=== PATIENT | male | born 1945 | race Caucasian/White ===

== ENCOUNTER 2018-04-05 08:39 | Inpatient (IN) | payer OTHER, MEDICARE ==
--- NOTE | 2018-04-05 09:58 | EDPHY ---
H & P Stated Complaint: sharp r arm pain this week noted when shoveling and cross country skiing Time Seen by Provider: 04/05/18 09:33 HPI/ROS: CHIEF COMPLAINT: Right arm pain HISTORY OF PRESENT ILLNESS: 73-year-old male with hypertension presents with right arm pain. Onset of intermittent right arm pain 1 week ago. He was cross- country skiing yesterday and developed a severe achiness in his right arm. He continued skiing, stopped using his right pole and let his arm dangle at his side, after which the achiness resolved. He was able to ski normally as long as he did not use his right arm. He had a similar episode while shoveling snow earlier this week. Associated with exertional dyspnea for 6 weeks and occasional nonproductive cough for several months. No prior cardiac history. REVIEW OF SYSTEMS: complete 10 point ROS reviewed and is negative except for the noted elements in the HPI - Personal History Current Tetanus Diphtheria and Acellular Pertussis (TDAP): Yes - Medical/Surgical History Hx Asthma: No Hx Chronic Respiratory Disease: No Hx Diabetes: No Hx Cardiac Disease: No Hx Renal Disease: No Hx Cirrhosis: No Hx Alcoholism: No Hx HIV/AIDS: No Hx Splenectomy or Spleen Trauma: No Other PMH: htn/ ortho inj - Social History Smoking Status: Never smoked Alcohol Use: Sober Drug Use: None Additional Social History: - Physical Exam Exam: General Appearance: Alert, pleasant Eyes: Pupils equal and round, no conjunctival pallor or injection ENT, Mouth: Mucous membranes moist Neck: Normal inspection Respiratory: Lungs are clear to auscultation Cardiovascular: Regular rate and rhythm Gastrointestinal: Abdomen is soft and nontender Neurological: A&O, nonfocal, normal gait Skin: Warm and dry, no rash Extremities: Nontender, no pedal edema, negative Homans sign; right upper extremity normal inspection, no swelling or tenderness Vascular: 1+ radial pulse on the right; 2+ radial pulse on the left, normal capillary refill Psychiatric: Mood and affect normal Constitutional: Initial Vital Signs Temperature (C) 36.3 C 04/05/18 08:45 Heart Rate 98 04/05/18 08:45 Respiratory Rate 18 04/05/18 08:45 Blood Pressure 132/87 H 04/05/18 08:45 O2 Sat (%) 98 04/05/18 08:45 O2 Delivery Mode Room Air Allergies/Adverse Reactions: Penicillins Allergy (Verified 04/05/18 11:48) does not remember, possible dizziness Home Medications: Medication Instructions Recorded Calcium Carbonate [Oyster Shell 500 mg PO DAILY 04/05/18 Calcium 500 mg (*)] Fluticasone Nasal [Flonase Nasal 1 sprays NASAL BID 04/05/18 [place] (RX)] Glucosamine Sulfate [Glucosamine 500 mg PO DAILY 04/05/18 Sulfate 500 MG (*)] Losartan Potassium [Cozaar 50 mg 50 mg PO DAILY 04/05/18 (*)] Omeprazole 20 mg PO Q2D 04/05/18 Medical Decision Making - Diagnostics EKG Interpretation: EKG interpreted by me reveals normal sinus rhythm, rate 80, PAC, no ST or T segment changes. Interpretation: Otherwise normal EKG. Imaging Results: Imaging Impressions Chest X-Ray 04/05/18 09:52 Impression: Chronic COPD/emphysema. Nothing acute identified. Chest/Thorax CTA 04/05/18 11:32 Impression: 1. Peripherally located thrombus within a segmental branch of the right lower lobe, favored to represent a chronic pulmonary embolus. 2. 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 There is near complete occlusion of the right axillary artery to the level of the brachial artery due to inflammation. Other affected vessels include the proximal right vertebral artery, bilateral subclavian arteries, left axillary artery, proximal celiac and left renal arteries, and abdominal aorta. No aneurysm. 3. Groundglass nodules in the bilateral upper lobes, measuring up to 4.8 mm. These may be infectious. Would consider 12 month follow-up CT. 4. Large hiatal hernia. 5. Encapsulated fluid collection adjacent to the right hip prosthesis, possibly representing a seroma or bursitis. No imaging evidence of an abscess but would exclude clinically. 6. Compression fracture of L3 of unknown chronicity with retrolisthesis of L3 on L4 causing impingement of the spinal canal. Findings and recommendations discussed with RAUL PULIDO at 1328 hour, 2018. Upper Extremity CT 04/05/18 11:33 Impression: 1. Peripherally located thrombus within a segmental branch of the right lower lobe, favored to represent a chronic pulmonary embolus. 2. 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 There is near complete occlusion of the right axillary artery to the level of the brachial artery due to inflammation. Other affected vessels include the proximal right vertebral artery, bilateral subclavian arteries, left axillary artery, proximal celiac and left renal arteries, and abdominal aorta. No aneurysm. 3. Groundglass nodules in the bilateral upper lobes, measuring up to 4.8 mm. These may be infectious. Would consider 12 month follow-up CT. 4. Large hiatal hernia. 5. Encapsulated fluid collection adjacent to the right hip prosthesis, possibly representing a seroma or bursitis. No imaging evidence of an abscess but would exclude clinically. 6. Compression fracture of L3 of unknown chronicity with retrolisthesis of L3 on L4 causing impingement of the spinal canal. Findings and recommendations discussed with RAUL PULIDO at 1328 hour, 2018. Imaging: Discussed imaging studies w/ call center trainer Radiologist ED Course/Re-evaluation: This patient presents with right arm pain. He has a decreased pulse in the right radial artery, with good capillary refill. Concerning for arterial compromise. I initially ordered an arterial ultrasound, but was unable to obtain this test. For this reason, I ordered a CT angiogram of the chest and the right upper extremity. This reveals diffuse arteritis, which is certainly the reason for the patient's symptoms. The hospitalist service was consulted and will pursue further evaluation of the arteritis and likely steroid treatment. Results discussed with the patient. He was asymptomatic throughout his emergency department stay. Differential Diagnosis: Includes does not limited to acute arterial compromise, acute coronary syndrome , pulmonary embolism, DVT - Data Points Laboratory Results: Laboratory Results 04/05/18 10:00 04/05/18 10:00 04/05/18 04/05/18 04/05/18 10:03 10:00 10:00 WBC RBC Hgb Hct 43.1 % % (40.0-51.0) MCV MCH MCHC RDW Plt Count MPV Neut % (Auto) Lymph % (Auto) [place] % (Auto) Eos % (Auto) Baso % (Auto) Nucleat RBC Rel Count Absolute Neuts (auto) Absolute Lymphs (auto) Absolute Monos (auto) Absolute Eos (auto) Absolute Basos (auto) Absolute Nucleated RBC Immature Gran % Immature Gran # ESR 19 MM/HR MM/HR (0-20) D-Dimer 0.56 ug/mLFEU H ug/mLFEU (0.00-0.50) Sodium Potassium Chloride Carbon Dioxide Anion Gap BUN Creatinine Estimated GFR Glucose Calcium POC Troponin I 0.01 ng/mL ng/mL (0.00-0.08) NT-Pro-B Natriuret Pep 04/05/18 04/05/18 10:00 10:00 WBC 7.70 10^3/uL 10^3/uL (3.80-9.50) RBC 5.44 10^6/uL 10^6/uL (4.40-6.38) Hgb 13.5 g/dL L g/dL (13.7-17.5) Hct 43.1 % % (40.0-51.0) MCV 79.2 fL L fL (81.5-99.8) MCH 24.8 pg L pg (27.9-34.1) MCHC 31.3 g/dL L g/dL (32.4-36.7) RDW 14.9 % % (11.5-15.2) Plt Count 360 10^3/uL 10^3/uL (150-400) MPV 9.0 fL fL (8.7-11.7) Neut % (Auto) 65.3 % % (39.3-74.2) Lymph % (Auto) 21.2 % % (15.0-45.0) [place] % (Auto) 9.7 % % (4.5-13.0) Eos % (Auto) 2.9 % % (0.6-7.6) Baso % (Auto) 0.5 % % (0.3-1.7) Nucleat RBC Rel Count 0.0 % % (0.0-0.2) Absolute Neuts (auto) 5.03 10^3/uL 10^3/uL (1.70-6.50) Absolute Lymphs (auto) 1.63 10^3/uL 10^3/uL (1.00-3.00) Absolute Monos (auto) 0.75 10^3/uL 10^3/uL (0.30-0.80) Absolute Eos (auto) 0.22 10^3/uL 10^3/uL (0.03-0.40) Absolute Basos (auto) 0.04 10^3/uL 10^3/uL (0.02-0.10) Absolute Nucleated RBC 0.00 10^3/uL 10^3/uL (0-0.01) Immature Gran % 0.4 % % (0.0-1.1) Immature Gran # 0.03 10^3/uL 10^3/uL (0.00-0.10) ESR D-Dimer Sodium 140 mEq/L mEq/L (135-145) Potassium 3.9 mEq/L mEq/L (3.5-5.2) Chloride 108 mEq/L mEq/L (97-110) Carbon Dioxide 24 mEq/l mEq/l (22-31) Anion Gap 8 mEq/L mEq/L (6-14) BUN 14 mg/dL mg/dL (7-23) Creatinine 0.9 mg/dL mg/dL (0.7-1.3) Estimated GFR > 60 Glucose 105 mg/dL H mg/dL (70-100) Calcium 9.0 mg/dL mg/dL (8.5-10.4) POC Troponin I NT-Pro-B Natriuret Pep 92 pg/mL pg/mL (0-125) Medications Given: Sodium Chloride (Ns) 1,000 mls @ 125 mls/hr IV CONT MARY Stop: 04/05/18 21:29 Last Admin: 04/05/18 14:58 Dose: 1,000 mls Discontinued Medications Aspirin Buffered (Aspirin Ec) 81 mg PO DAILY [facility] Stop: 10/02/18 13:44 Last Admin: 04/05/18 14:31 Dose: Not Given Point of Care Test Results: Chemistry 04/05/18 10:03 POC Troponin I 0.01 ng/mL ng/mL (0.00-0.08) Departure - Departure Disposition: [facility] [place] Inpatient Acute Clinical Impression: Arteritis, unspecified Condition: Fair
[2018-04-05 10:17] LABS: PLATELET COUNT 360 10^3/uL (150-400)
[2018-04-05] MEDS ORDERED: IOPAMIDOL (ISOVUE 370) 100 ML BTL IV ONE (12:03)
[2018-04-05] MEDS ORDERED: ONDANSETRON 4 MG/2 ML VIAL IVP PRN (12:28)
[2018-04-05] MEDS ORDERED: ONDANSETRON DISINTEGRATING 4 MG TAB PO PRN (12:28)
[2018-04-05] MEDS ORDERED: ACETAMINOPHEN 325 MG TAB PO PRN (12:28)
--- NOTE | 2018-04-05 13:11 | PDGENHP ---
History and Physical - Chief Complaint Right arm pain - History of Present Illness 73 y/o male presents with one week worth of intermittent right arm pain. On one occasion, he was shoveling snow and noticed his right arm aching and felt short of breath. On another occasion, he was cross country skiing and attempting to pole up the mountain but his right arm was quite bothersome especially the triceps and forearm. He describes it as sharp and stabbing. He stopped using his arm and the symptoms resolved. Approximately 6 weeks ago, he noticed exertional dyspnea and a non-productive cough. He is a very active gentleman who goes to the gym to rock climb, skiing, etc but he noticed exertional dyspnea after going up one flight of stairs which is unlike him. He also reports 2 months ago while hiking, he noticed what felt like a "mirella horse" to his right calf but it was very bothersome to him. He continue to massage the area and it eventually resolved. Denies chest pains, nausea, vomiting, fevers or chills. Past Medical/Surgical History 1. Hypertension 2. Acid Reflux 3. Right hip replaced (2007) 4. Prostate CA 5. Prostatectomy (2009) Social 1. to , Antonia who was at bedside 2. Denies tobacco or illicit drug use. No alcohol use. History Information - Allergies/Home Medication List Allergies/Adverse Reactions: Penicillins Allergy (Verified 04/05/18 11:48) does not remember, possible dizziness Home Medications: Calcium Carbonate [Oyster Shell Calcium 500 mg (*)] 500 mg PO DAILY 04/05/18 [ Last Taken 04/05/18] Fluticasone Nasal [Flonase Nasal [place] (RX)] 1 sprays NASAL BID 04/05/18 [Last Taken Unknown] Glucosamine Sulfate [Glucosamine Sulfate 500 MG (*)] 500 mg PO DAILY 04/05/18 [ Last Taken 04/05/18] Losartan Potassium [Cozaar 50 mg (*)] 50 mg PO DAILY 04/05/18 [Last Taken ] Omeprazole 20 mg PO Q2D 04/05/18 [Last Taken 04/05/18] I have personally reviewed and updated: family history, medical history, social history, surgical history Past Medical History: See HPI list - Surgical History Additional surgical history: See HPI list - Family History Positive for: myocardial infarction Additional family history: Father at 70 y/o, . - Social History Smoking Status: Never smoked Alcohol Use: None Drug Use: None Review of Systems Review of Systems: ROS: 10pt was reviewed & negative except for what was stated in HPI & below Constitutional: Reports: no symptoms EENMT: Reports: no symptoms Cardiac: Reports: no symptoms Respiratory: Reports: shortness of breath Gastrointestinal: Reports: no symptoms Genitourinary: Reports: no symptoms Muscolosketal: Reports: muscle pain, muscle stiffness (RUE) Skin: Reports: no symptoms Neurological: Reports: no symptoms Hematologic/Lymphatic: Reports: no symptoms Immunologic/Allergy: Reports: other (PCN) Physical Exam Physical Exam: Lab data and imaging reviewed Temp Pulse Resp BP Pulse Ox 36.3 C 80 20 103/84 H 97 04/05/18 08:45 04/05/18 12:00 04/05/18 12:00 04/05/18 12:00 04/05/18 12:00 Constitutional: no apparent distress, appears nourished, not in pain Eyes: PERRL Ears, Nose, Mouth, Throat: moist mucous membranes, hearing normal, ears appear normal, no oral mucosal ulcers Cardiovascular: regular rate and rhythym, no murmur, rub, or gallop, No edema Peripheral Pulses: 1+: dorsalis-pedis (R) (Radial 1+), dorsalis-pedis (L) ( Radial 1+) Respiratory: reduced air movement (Diminished throughout lung roberto) Gastrointestinal: normoactive bowel sounds, soft, non-tender abdomen, no palpable masses Genitourinary: no bladder fullness, no bladder tenderness Skin: warm, normal color, no rashes or abrasions, no fluctuance, no induration, No mottled Musculoskeletal: full muscle strength, no muscle tenderness, normal joint ROM, no joint effusions Neurologic: AAOx3, sensation intact bilaterally, CN II-XII Intact Psychiatric: interacting appropriately, not anxious, not encephalopathic, thought process linear Lymph, Heme, Immunologic: no cervical LAD, no supraclavicular LAD Lab Data & Imaging Review 04/05/18 10:00 04/05/18 10:00 WBC 7.70 10^3/uL (3.80-9.50) 04/05/18 10:00 RBC 5.44 10^6/uL (4.40-6.38) 04/05/18 10:00 Hgb 13.5 g/dL (13.7-17.5) L 04/05/18 10:00 Hct 43.1 % (40.0-51.0) 04/05/18 10:00 MCV 79.2 fL (81.5-99.8) L 04/05/18 10:00 MCH 24.8 pg (27.9-34.1) L 04/05/18 10:00 MCHC 31.3 g/dL (32.4-36.7) L 04/05/18 10:00 RDW 14.9 % (11.5-15.2) 04/05/18 10:00 Plt Count 360 10^3/uL (150-400) 04/05/18 10:00 MPV 9.0 fL (8.7-11.7) 04/05/18 10:00 Neut % (Auto) 65.3 % (39.3-74.2) 04/05/18 10:00 Lymph % (Auto) 21.2 % (15.0-45.0) 04/05/18 10:00 [place] % (Auto) 9.7 % (4.5-13.0) 04/05/18 10:00 Eos % (Auto) 2.9 % (0.6-7.6) 04/05/18 10:00 Baso % (Auto) 0.5 % (0.3-1.7) 04/05/18 10:00 Nucleat RBC Rel Count 0.0 % (0.0-0.2) 04/05/18 10:00 Absolute Neuts (auto) 5.03 10^3/uL (1.70-6.50) 04/05/18 10:00 Absolute Lymphs (auto) 1.63 10^3/uL (1.00-3.00) 04/05/18 10:00 Absolute Monos (auto) 0.75 10^3/uL (0.30-0.80) 04/05/18 10:00 Absolute Eos (auto) 0.22 10^3/uL (0.03-0.40) 04/05/18 10:00 Absolute Basos (auto) 0.04 10^3/uL (0.02-0.10) 04/05/18 10:00 Absolute Nucleated RBC 0.00 10^3/uL (0-0.01) 04/05/18 10:00 Immature Gran % 0.4 % (0.0-1.1) 04/05/18 10:00 Immature Gran # 0.03 10^3/uL (0.00-0.10) 04/05/18 10:00 D-Dimer 0.56 ug/mLFEU (0.00-0.50) H 04/05/18 10:00 Sodium 140 mEq/L (135-145) 04/05/18 10:00 Potassium 3.9 mEq/L (3.5-5.2) 04/05/18 10:00 Chloride 108 mEq/L (97-110) 04/05/18 10:00 Carbon Dioxide 24 mEq/l (22-31) 04/05/18 10:00 Anion Gap 8 mEq/L (6-14) 04/05/18 10:00 BUN 14 mg/dL (7-23) 04/05/18 10:00 Creatinine 0.9 mg/dL (0.7-1.3) 04/05/18 10:00 Estimated GFR > 60 04/05/18 10:00 Glucose 105 mg/dL (70-100) H 04/05/18 10:00 Calcium 9.0 mg/dL (8.5-10.4) 04/05/18 10:00 POC Troponin I 0.01 ng/mL (0.00-0.08) 04/05/18 10:03 NT-Pro-B Natriuret Pep 92 pg/mL (0-125) 04/05/18 10:00 Assessment & Plan Plan: 73 y/o male presenting with exertional dyspnea and occasional RUE pain and discomfort with exertional use. Dominant hand is right hand. Performing ADLs does not activate the pain to his arm. He has noticed it only with doing something exertional that requires use of his arm. After returning from a 3 week cruise vacation from [place] to [place], he was evaluated by Dr. Van for chronic fatigue and his exertional dyspnea. He is scheduled for an upcoming stress test this Sunday. At the time of the visit, he was mildly anemic and started on once a day ferrous sulfate Differential diagnoses are pulmonary embolism, acute coronary syndrome, angina. 1. Exertional dyspnea: symptomatic associated with RUE pain -CXR reveals chronic COPD/emphysema, EKG SR with PAC, no ST depression or elevation -D-Dimer elevated 0.56 -BNP: 92 -First troponin negative, will cycle trops -Cont tele/pulse ox monitoring -CTA of chest and RUE pending; will supply IVF to assist with IV contrast excretion -Started on ASA 81 mg -Lipid panel tomorrow; depending on results, would consider initiating statin -Echo complete pending -Possible stress test tomorrow 2. Hypertension -Stable, may continue losartan 3. Anemia -Started utilizing ferrous sulfate on 03/18/18. Continue to monitor. 4. Acid reflux: he reports reflux is from heavy eating of spicy foods -May continue to take omeprazole every other day per pt. Diet: Regular VTE ppx: SCDs Code: Full Dispo: Admit to obs
[2018-04-05] MEDS ORDERED: NS 1,000 ML IV SCH (13:30)
[2018-04-05] MEDS ORDERED: ASPIRIN EC 81 MG TAB PO SCH (13:45)
--- NOTE | 2018-04-05 14:46 | CPEKG ---
Test Reason : OPEN Blood Pressure : / mmHG Vent. Rate : 080 BPM Atrial Rate : 082 BPM P-R Int : 147 ms QRS Dur : 075 ms QT Int : 390 ms P-R-T Axes : 073 067 065 degrees QTc Int : 450 ms Sinus rhythm Atrial premature complex Confirmed by Suzanne Boo ([id number]) on 04/05/2018 2:45:50 PM Referred By: Confirmed By:Suzanne Boo
--- NOTE | 2018-04-05 14:51 | ECHO ---
[email or web address] [address] [address] Main: [phone] Fax: Transthoracic Echocardiogram Name: MARÍA ELENA PAZ MR#: [id number] Study Date: 04/05/2018 Study Time: 02:09 PM Date of : 1945 Age: 73 year(s) Height: 170.2 cm (67 in.) Weight: 65.77 kg (145 lb.) BSA: 1.76 m2 Gender: Male Examination: Echo Indication: exertional dyspnea Image Quality: Adequate Contrast: Requested by: Mabel Lang BP: 127 mmHg/78 mmHg Heart Rate: Rhythm: Indication: exertional dyspnea Procedure Staff Major General: Marifer Oh RDCS Reading Physician: Kaleb Yepez MD Requesting Provider: Conclusions: Normal global systolic LV function. EF is 61 %. Mild mitral valve regurgitation is present. Trivial aortic valve regurgitation. Mild tricuspid regurgitation is present. Right ventricular systolic pressure measures 49mmHg. Measurements: Chambers Valvular Assessment AV/MV Valvular Assessment TV/PV Normal Normal Normal Name Value Range Name Value Range Name Value Range Ao Jaclyn (2D): 3.0 cm (1.4 cm-2.6 AV Vmax: 1.62 m/s (1 m/s-1.7 TR Vmax: 3.31 mm/s ( - ) cm) m/s) TR PGmax: 44 mmHg ( - ) IVSd (2D): 1.0 cm (0.6 cm-1.1 AV maxP mmHg ( - ) syst. PAP: 49 mmHg ( - ) cm) AV meanP mmHg ( - ) PV Vmax: 0.98 m/s (0.6 m/s-0.9 LVDd (2D): 4.0 cm (4.2 cm-5.9 BELLE (VTI): 2.0 cm ( - ) m/s) cm) MV E Vmax: 0.72 m/s ( - ) PV PGmax: 4 mmHg ( - ) LVDs (2D): 2.8 cm (2.1 cm-4 MV A Vmax: 0.76 m/s ( - ) cm) MV E/A: 0.95 ( - ) LVPWd (2D): 1.0 cm (0.6 cm-1 cm) MV PHT: 0.074 s ( - ) LVOTd 2.0 cm 2.0 cm mm MVA (PHT): 3.0 s ( - ) LVEF (BP): 61 % (>=55 %) RVDd(2D): 3.0 cm (1.9 cm-3.8 cmmm) Continued Measurements: Chambers Valvular Assessment AV/MV Valvular Assessment TV/PV Name Value Name Value Name Value Patient: MARÍA ELENA PAZ Study Date: 04/05/2018 Page 1 of 2 02:09 PM LADs: 2.8 cm MV DecTime: 236 m/s CVP (est.): 5 mmHg LADs Lon.1 cm MV E' Septal: 0.07 m/s LA Area: 16.1 cm2 MV E/E' Septal: 9.80 LA Volume: 43 ml MV E/E' Lateral: 6.50 LA Volume Index: 24.4 ml/m2 RA Area: 15.1 cm2 Additional Vessels Name Value Ao Ascendin.0 cm Inferior Vena Cava: 1.5 cm Findings: Left Ventricle: Normal size left ventricle. No LV hypertrophy. Normal global systolic LV function. EF is 61 %. No regional wall motion abnormality. Normal diastolic LV function. Right Ventricle: Normal size right ventricle. Normal RV function. Left Atrium: The left atrium is normal in size. Right Atrium: The right atrium is normal in size. Mitral Valve: The mitral valve is normal in appearance and function. Mild mitral valve regurgitation is present. No mitral stenosis is present. Aortic Valve: The aortic valve is tri-leaflet. Trivial aortic valve regurgitation. No aortic valve stenosis is present. Tricuspid Valve: The tricuspid valve is normal in appearance and function. Mild tricuspid regurgitation is present. The pulmonary artery pressure is moderately increased. Right ventricular systolic pressure measures 49mmHg. Pulmonic Valve: The pulmonic valve is normal in appearance and function. There is no pulmonic regurgitation seen. Aorta: The aorta is normal. Normal size aortic root measuring 3.0 cm. Normal size ascending aorta measuring 3.0 cm. IVC: The IVC is normal sized. Pericardium: No pericardial effusion. No pleural effusion. (No Signature Object) Patient: MARÍA ELENA PAZ Study Date: 04/05/2018 Page 2 of 2 02:09 PM [id number]
[2018-04-05] MEDS ORDERED: HEPARIN 10,000 UNIT/10 ML MDV (1,000 UNIT/ML) IVP ONE (15:47)
[2018-04-05] MEDS ORDERED: HEPARIN 10,000 UNIT/10 ML MDV (1,000 UNIT/ML) IVP PRN (15:47)
[2018-04-05 16:21] LABS: PLATELET COUNT 365 10^3/uL (150-400)
[2018-04-05 16:30] LABS: INR 1.06 (0.83-1.16)
[2018-04-05] MEDS: predniSONE 20 MG TAB PO SCH (16:47)
[2018-04-05] MEDS: HEPARIN/DEXTROSE 500 ML IV SCH (16:47)
--- NOTE | 2018-04-05 17:27 | HOSPPROG ---
Hospitalist Progress Note Assessment/Plan: Pt seen in conjunction with our SORT OPERATIONS SUPERVISOR. 73 y/o male presenting with exertional dyspnea since early March as well as Right arm pain and right calf pain with exertion only. Symptoms go away with rest. Had viral symptoms (rhinorrhea, cough, cold sx's on Mar 02). no hx of asthma or bronchitis. Non smoker. No hx of HLD Studies: EKG: SR, no ischemic changes CTA Chest/right Arm: -Peripheral located RLL Thrombus, possibly chronic, no e/o of right heart strain -Large vessel vasculitis (Giant Cell Arteritis). Involves multiple vessels: 1 )75 % occlusion of Right axillary artery 2) Bilateral Subclavian 3)Left Axillary artery 4)Left renal 5)Abdominal Aorta. 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 Will start Prednisone 60mg daily and obtain Rheum consult. ESR/CRP will be obtained Start bronchodilator. Steroids should also help with the RAD check Trop, cycle Trops. For now, Given the inflammatory state/vasculitis with occlusion, I will hold off on stress testing until d/w consultants will consider cards and pulm consult start Heparin for VTE treatment pending w/u. Obtain LE US to r/o DVT's total critical care time in this patient with significant vasculitis with claudication and with advance occlusion is 75 mins, this is independent of time spent with SORT OPERATIONS SUPERVISOR. Will d/w consultants. Subjective: no active cp. some cough. no sob. Objective: Vital Signs Temp Pulse Resp BP Pulse Ox 36.6 C 83 16 132/91 H 99 04/05/18 15:56 04/05/18 15:56 04/05/18 15:56 04/05/18 15:56 04/05/18 15:56 Laboratory Results 04/05/18 16:05 PT 14.0 SEC (12.0-15.0) 04/05/18 16:05 INR 1.06 (0.83-1.16) 04/05/18 16:05 - Physical Exam Constitutional: no apparent distress Eyes: PERRL Ears, Nose, Mouth, Throat: moist mucous membranes Cardiovascular: No edema Respiratory: no respiratory distress, expiratory wheeze Gastrointestinal: normoactive bowel sounds, soft, non-tender abdomen Skin: warm Neurologic: AAOx3 Psychiatric: interacting appropriately, not anxious, not encephalopathic Lymph, Heme, Immunologic: petechiae ICD10 Worksheet Patient Problems: Problems Problem Status Onset Arteritis, unspecified Acute
[2018-04-05] MEDS: ALBUTEROL 3 ML DEYVIAL IH SCH ×3 (17:40→23:19)
[2018-04-05] MEDS: FLUTICASONE NASAL 120 SPRAYS/16 GM MDI EACHNARE SCH (21:34)
--- NOTE | 2018-04-05 21:39 | PDGENHP ---
History and Physical - Chief Complaint R arm pain - History of Present Illness Mr Garcia is a 73 year old White male who presents to [facility] with R arm pain. He reports that he is very healthy and active up until a few weeks ago. He reports that in January 2018 after hiking with his , he had R leg/calf cramping which felt like a "mirella horse". He reports that this is unusual for him but it went away after awhile. Last week, he was shoveling snow and noted "achiness " in his R arm. This was around the triceps and brachioradialis muscles. The achiness worsened with continued shoveling and seemed to improve with rest. He went to urgent care and then [facility]. He does reports the last 6 months being more short of breath than usual but denies any cough or hemoptysis (he did have an ACEI cough which got better on change to an ARB). He is incredibly active and hikes, and skis with his , Antonia. He also climbs mountains. He has also had multiple international travels this year. He at any time, loss of function of the R arm or R leg (no wrist drop,foot drop, etc). Also denies fatigue, weight loss or fevers. No rashes or photosensitivity, sicca symptoms or oral/nasal ulcers. He denies any joint or muscle pain, or swelling - this includes no shoulder or pelvic girdle pain/stiffness. In addition, he denies headaches, scalp tenderness or jaw claudication. He also denies a history of Hepatitis or any testicular pain. He has hypertension and a remote history of prostate cancer s/p prostatectomy. Recent PSA has been 0. He has a history of R hip replacement due to an injury in the 1960s. He believes this is where he had the L3 compression fracture detected on recent imaging. History Information - Allergies/Home Medication List Allergies/Adverse Reactions: Penicillins Allergy (Verified 04/05/18 11:48) does not remember, possible dizziness Home Medications: Calcium Carbonate [Oyster Shell Calcium 500 mg (*)] 500 mg PO DAILY 04/05/18 [ Last Taken 04/05/18] Fluticasone Nasal [Flonase Nasal Marty (RX)] 1 sprays NASAL BID 04/05/18 [Last Taken Unknown] Glucosamine Sulfate [Glucosamine Sulfate 500 MG (*)] 500 mg PO DAILY 04/05/18 [ Last Taken 04/05/18] Losartan Potassium [Cozaar 50 mg (*)] 50 mg PO DAILY 04/05/18 [Last Taken ] Omeprazole 20 mg PO Q2D 04/05/18 [Last Taken 04/05/18] I have personally reviewed and updated: family history, medical history, social history, surgical history Past Medical History: See HPI list - Past Medical History hypertension Additional medical history: Prostate Cancer s/p prostatectomy - Surgical History Additional surgical history: s/p R hip replacement due to chronic injury - Family History Positive for: myocardial infarction Additional family history: Father at 70 y/o, . 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 [place], [place] Review of Systems Review of Systems: ROS is negative other what is noted below ROS: 10pt was reviewed & negative except for what was stated in HPI & below Constitutional: Reports: no symptoms EENMT: Reports: no symptoms Cardiac: Reports: no symptoms Respiratory: Reports: shortness of breath Gastrointestinal: Reports: no symptoms Genitourinary: Reports: no symptoms Muscolosketal: Reports: no symptoms Skin: Reports: no symptoms Neurological: Reports: no symptoms Hematologic/Lymphatic: Reports: no symptoms Physical Exam Physical Exam: See below Temp Pulse Resp BP Pulse Ox 36.6 C 84 19 99/60 L 94 04/05/18 19:50 04/05/18 19:50 04/05/18 19:50 04/05/18 19:50 04/05/18 19:50 Constitutional: no apparent distress, appears nourished, not in pain Eyes: PERRL Ears, Nose, Mouth, Throat: moist mucous membranes, no oral mucosal ulcers Cardiovascular: regular rate and rhythym, no murmur, rub, or gallop Peripheral Pulses: 2+: carotid (R), carotid (L), femoral (R), femoral (L), dorsalis-pedis (R), dorsalis-pedis (L) Respiratory: no respiratory distress, no rales or rhonchi, clear to auscultation Gastrointestinal: normoactive bowel sounds, soft, non-tender abdomen, no palpable masses Skin: normal color, no rashes or abrasions Musculoskeletal: full muscle strength, no muscle tenderness, normal joint ROM, no joint effusions Neurologic: AAOx3 Psychiatric: interacting appropriately Lymph, Heme, Immunologic: no cervical LAD Lab Data & Imaging Review 04/06/18 03:34 04/06/18 03:34 WBC 7.60 10^3/uL (3.80-9.50) 04/05/18 16:05 RBC 5.17 10^6/uL (4.40-6.38) 04/05/18 16:05 Hgb 13.0 g/dL (13.7-17.5) L 04/05/18 16:05 Hct 42.4 % (40.0-51.0) 04/05/18 16:05 MCV 82.0 fL (81.5-99.8) 04/05/18 16:05 MCH 25.1 pg (27.9-34.1) L 04/05/18 16:05 MCHC 30.7 g/dL (32.4-36.7) L 04/05/18 16:05 RDW 14.7 % (11.5-15.2) 04/05/18 16:05 Plt Count 365 10^3/uL (150-400) 04/05/18 16:05 MPV 9.0 fL (8.7-11.7) 04/05/18 16:05 Neut % (Auto) 62.8 % (39.3-74.2) 04/05/18 16:05 Lymph % (Auto) 27.1 % (15.0-45.0) 04/05/18 16:05 [place] % (Auto) 6.8 % (4.5-13.0) 04/05/18 16:05 Eos % (Auto) 2.5 % (0.6-7.6) 04/05/18 16:05 Baso % (Auto) 0.5 % (0.3-1.7) 04/05/18 16:05 Nucleat RBC Rel Count 0.0 % (0.0-0.2) 04/05/18 16:05 Absolute Neuts (auto) 4.77 10^3/uL (1.70-6.50) 04/05/18 16:05 Absolute Lymphs (auto) 2.06 10^3/uL (1.00-3.00) 04/05/18 16:05 Absolute Monos (auto) 0.52 10^3/uL (0.30-0.80) 04/05/18 16:05 Absolute Eos (auto) 0.19 10^3/uL (0.03-0.40) 04/05/18 16:05 Absolute Basos (auto) 0.04 10^3/uL (0.02-0.10) 04/05/18 16:05 Absolute Nucleated RBC 0.00 10^3/uL (0-0.01) 04/05/18 16:05 Immature Gran % 0.3 % (0.0-1.1) 04/05/18 16:05 Immature Gran # 0.02 10^3/uL (0.00-0.10) 04/05/18 16:05 ESR 19 MM/HR (0-20) 04/05/18 10:00 PT 14.0 SEC (12.0-15.0) 04/05/18 16:05 INR 1.06 (0.83-1.16) 04/05/18 16:05 APTT 27.2 SEC (23.0-38.0) 04/05/18 16:05 D-Dimer 0.56 ug/mLFEU (0.00-0.50) H 04/05/18 10:00 Sodium 140 mEq/L (135-145) 04/05/18 10:00 Potassium 3.9 mEq/L (3.5-5.2) 04/05/18 10:00 Chloride 108 mEq/L (97-110) 04/05/18 10:00 Carbon Dioxide 24 mEq/l (22-31) 04/05/18 10:00 Anion Gap 8 mEq/L (6-14) 04/05/18 10:00 BUN 14 mg/dL (7-23) 04/05/18 10:00 Creatinine 0.9 mg/dL (0.7-1.3) 04/05/18 10:00 Estimated GFR > 60 04/05/18 10:00 Glucose 105 mg/dL (70-100) H 04/05/18 10:00 Calcium 9.0 mg/dL (8.5-10.4) 04/05/18 10:00 POC Troponin I 0.01 ng/mL (0.00-0.08) 04/05/18 10:03 Troponin I < 0.012 ng/mL (0.000-0.034) 04/05/18 15:58 C-Reactive Protein 38.0 mg/L (<10.0) H 04/05/18 15:58 NT-Pro-B Natriuret Pep 92 pg/mL (0-125) 04/05/18 10:00 Imaging Review: I have reviewed the imaging studies done thus far. Most notably, CT Angio of the chest shows almost complete occlusion of the R axillary artery to the level of the brachial artery due to inflammation. Other involved arteries include proximal R vertebral artery, B subclavian arteries, L axillary artery, proximal celiac and renal arteries and abdominal aorta Peripherally located thrombus in the segmental branch of the RLL also noted - likely a chronic PE ECHO - NL EF, trace valve abnormalities LE U/S - No DVT Visualized and Interpreted EKG results: Yes Assessment & Plan Assessment: 1. Arteritis, unspecified (Acute) 2. R arm Claudication 3. Elevated CRP 4. Chronic RLL pulmonary embolus. 5. History of Prostate cancer Mr Garcia is a very pleasant 73 year old male who presents to [facility] with a history of recent R calf and R arm claudication in the setting of an elevated CRP (3.10 mg/dL) and imaging findings suggestive of a vasculitis (multiple areas of occlusion and vessel narrowing - B axillary, R vertebral, B subclavian , proximal celiac, renal and abdominal aortic arteries). The R axillary artery showing near complete occlusion, likely explains his R arm claudication symptoms. He has been started on 60 mg of prednisone. This certainly could be a medium ( MANZANARES) or large vessel (Takayasu's) vasculitis in this setting, but without obtaining tissue diagnosis, it is hard to tell. In addition, Heraclio feels great and with the exception of some mild dyspnea his review of symptoms is largely negative. The differential diagnosis is quite broad here and I do wonder if the R axillary occlusion is actually from thromboembolic disease. After all, a chronic RLL PE was detected. Other possibilities include a cardiac cause such as fibromuscular dysplasia, vasospastic disorders and infection/malignancy. However in terms of the latter, Heraclio's most recent PSA was normal. I do favor the initiation of anticoagulation (Heraclio is on a heparin ggt now) and the continuation of 60 mg of prednisone for now. Pending some addition lab work, I think the decision on whether to pursue tissue diagnosis can be deferred to outpatient management. I would recommend prior to discharge, checking the following labs: KEHINDE IFA, Hepatitis B&C panel, RPR, rheumatoid factor, ANCA, Complements, SPEP, and, IgG4 levels and Antiphospholipid antibodies (B2GP, LA, acL). Also a repeat ESR and CRP prior to discharge would be helpful. I recommend discharge on 60 mg of prednisone along with the following -- omeprazole 20 mg (GI prophylaxis), Bactrim DS MWF (PJP prophylaxis), Alendronate 70 mg once weekly and at least 1200 mg of calcium and 2000 IU of vitamin D (for bone prophylaxis). I have blocked off an appointment slot for Heraclio to follow up with Dr Tarun Castillo, one of my colleagues in our [place], [place] office on , April 11, 2018. I will have my medical receptionist reach out to Heraclio to confirm the appointment on Sunday. Thank you for allowing me to participate in the care of this patient. Wili Boyle DO [facility] Office Number: [phone] Plan: As above - I am okay with discharge with outpatient rheumatology follow up when deemed appropriate by the primary team.
[2018-04-06 04:49] LABS: PLATELET COUNT 345 10^3/uL (150-400)
[2018-04-06] MEDS: ALBUTEROL 3 ML DEYVIAL IH SCH ×4 (05:50→21:00)
[2018-04-06] MEDS: predniSONE 20 MG TAB PO SCH (08:54)
[2018-04-06] MEDS: GLUCOSAMINE SULF 500 MG CAP PO SCH (08:54)
[2018-04-06] MEDS: FLUTICASONE NASAL 120 SPRAYS/16 GM MDI EACHNARE SCH ×2 (08:54→21:41)
[2018-04-06] MEDS ORDERED: LOSARTAN POTASSIUM 50 MG TAB PO SCH (09:00)
[2018-04-06] MEDS ORDERED: CALCIUM CARBONATE 500 MG TAB PO SCH ×2 (09:00→13:44)
--- NOTE | 2018-04-06 11:37 | GHP ---
DATE OF ADMISSION: 04/05/2018 CHIEF COMPLAINT: Patient with exertional shortness of breath and arm pain. This is a 73-year-old male, who presents with a week of intermittent arm pain and some shortness of b reath when snow shoveling and occasionally with skiing. The pain was described as sharp, stabbing. He also had a cough. He came to the emergency room for evaluation. His initial EKG was normal. Sub sequently, 2 cardiac enzymes were normal. His echocardiogram shows normal LV function without signif icant valvular pathology. Subsequently, a CTA had revealed a diagnosis of giant cell arteritis with involvement of the right upper extremity. There is a small pulmonary emboli and some iliac issues as well. He has been seen by Rheumatology and placed on steroid therapy. Prior to his admission, he, apparently, had an outpatient exercise stress test scheduled for next week at the [facility]. I was asked today to evaluate the patient. In speaking to him and his , he is feeling bett er. He has had no known history of coronary artery disease. He has a history of hyperten bharat, medically treated. Once again, he is a very active gentleman, who has had no prior cardiac iss ues. He has never been a smoker, diabetic. OUTPATIENT MEDS: Include losartan. ALLERGIES: He has no known allergies. PAST HISTORY: Hypertension, reflux, and status post prostatectomy for prostate cancer in 2009. LABS: Normal kidney function. BNP of 92. CK-MB is negative x2. Cholesterol is 127 with an LDL of 70. EXAM: VITAL SIGNS: Blood pressure is 104/72, pulse rate of 82. He is afebrile. GENERAL: He is a middle-aged male in no acute distress. HEENT: Mouth: Oropharynx is clear. LUNGS: Clear. CARDIOV ASCULAR: Regular rate and rhythm without murmur, gallops, rubs. ABDOMEN: Soft, nontender. MUSCULO SKELETAL: Showed no cyanosis, clubbing, or edema. Pulses are 2+ and symmetrical. Echocardiogram showed EF of 61%, no regional wall motion abnormality, normal chamber dimensions, no s ignificant valvar heart disease. No aortic root ascending aneurysm noted. ASSESSMENT: Constellation of arm pain, shortness of breath over the last few weeks, most consistent with his diagnosis of giant cell arteritis. The patient was initially thought to have been worked up for cardiac issues for his dyspnea before this diagnosis was made. Since he has been hospitalized, he has had a nonischemic EKG, normal BNP, normal troponins, normal rhythm, and vital signs. He has a history of hypertension as his only risk factor. Prior to his recent events, he was asymptomatic an d doing well. He does have an outpatient exercise stress test planned at the [facility]. At this point, I think he is safe to be discharged without treadmill testing while in the hospitalizati on. This can easily be done at the [facility]. Discussion with he and his about the need for c ontinued followup with peripheral vascular tech and possibly consider surveillance imaging down the line for an y secondary effects from the giant cell arteritis once it has been healed. This will be further disc ussed with his primary care physicians and specialists. Their questions were answered. Case discuss ed with the hospitalist as well. /[id number]/MODL
[2018-04-06] MEDS: HEPARIN/DEXTROSE 500 ML IV SCH (13:39)
--- NOTE | 2018-04-06 13:56 | HOSPPROG ---
Hospitalist Progress Note Assessment/Plan: 73 y/o male presenting with exertional dyspnea since early March as well as Right arm pain and right calf pain with exertion only. Symptoms go away with rest. Had viral symptoms (rhinorrhea, cough, cold sx's on Mar 02). no hx of asthma or bronchitis. Non smoker. No hx of HLD. 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 Involves multiple vessels: 1)75 % occlusion of Right axillary artery 2) Bilateral Subclavian 3)Left Axillary artery 4)Left renal 5)Abdominal Aorta. Per radiology report occlusion is due to inflammation CXR: Hyperinflation TTE: RVSP 49mmHG LE US: no DVT #Large Vessel Vasculitis, possible Giant cell Arteritis vs Polyarteritis Nodosa vs other #Right Arm Claudication, presumably from occlusion from inflammation from vasculitis #Exertional Dyspnea, etiology possibly multifactorial #Reactive Airway disease, unclear if long standing #Small RLL Pulmonary embolus #HTN, chronic #Anemia #Pulm HTN, elevated RVSP, etiology unclear Plan: -Rheum w/u pending. Multiple labs drawn. A biopsy will not be done during this admission but can be considered as op if the diagnosis is still unknown. Cont Prednisone 60mg daily -pulm to see -Cont Heparin. 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 -Card consulted. TTE, EKG, tele, trop no indicative of ACS/CAD. He will have a stress test an an op -D/c today vs tomorrow pending consults and labs/tests ordered Subjective: No cp or sob. no n/v. Objective: Vital Signs Temp Pulse Resp BP Pulse Ox 36.7 C 99 12 104/72 94 04/06/18 07:36 04/06/18 12:00 04/06/18 12:00 04/06/18 07:36 04/06/18 12:00 Laboratory Results 04/06/18 03:34 04/06/18 03:34 04/05/18 04/06/18 04/07/18 05:59 05:59 05:59 Intake Total 1218.2 656 Output Total 1050 300 Balance 168.2 356 PT 14.0 SEC (12.0-15.0) 04/05/18 16:05 INR 1.06 (0.83-1.16) 04/05/18 16:05 - Physical Exam Constitutional: no apparent distress, not in pain Eyes: PERRL, EOMI Ears, Nose, Mouth, Throat: moist mucous membranes, hearing normal Cardiovascular: regular rate and rhythym Respiratory: no respiratory distress, clear to auscultation Gastrointestinal: normoactive bowel sounds, soft, non-tender abdomen Skin: warm Neurologic: AAOx3 Psychiatric: interacting appropriately, not anxious, not encephalopathic Lymph, Heme, Immunologic: No petechiae ICD10 Worksheet Patient Problems: Problems Problem Status Onset Arteritis, unspecified Acute
[2018-04-06] MEDS: CHOLECALCIFEROL VIT D3 2,000 UNITS TAB/CAP PO SCH (14:01)
[2018-04-06] MEDS: RIVAROXABAN 15 MG TAB PO SCH (18:06)
--- NOTE | 2018-04-06 19:14 | ASMTCMCOM ---
CM Note CM Note Notes: Reviewed chart. Pt admitted for cough, exertional shortness of breath/dyspnea, arm pain. History includes HTN, reflux, prostate cancer, s/p prostatectomy. Pt is and lives with his in [place]. Per Dr. Lynn, pt to be started on an anticoagulant either Pradaxa or Xarelto pending insurance coverage. Pt to call insurance company to find out which medication is on their formulary. No PT/OT orders. Anticipate pt will likely discharge home independently with family support when medically stable. CM will continue to follow for any potential needs. Discharge Plan: Likely home independent Date Signed: 04/06/2018 07:12 PM Electronically Signed By:Betty Wall RN
--- NOTE | 2018-04-06 20:26 | PDMN ---
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
[2018-04-07 05:32] LABS: PLATELET COUNT 373 10^3/uL (150-400)
[2018-04-07] MEDS: ALBUTEROL 3 ML DEYVIAL IH SCH ×2 (06:12→11:27)
[2018-04-07 07:43] VITALS: BP 111/68
[2018-04-07] MEDS: GLUCOSAMINE SULF 500 MG CAP PO SCH (08:56)
[2018-04-07] MEDS: RIVAROXABAN 15 MG TAB PO SCH (08:56)
[2018-04-07] MEDS: predniSONE 20 MG TAB PO SCH (08:56)
[2018-04-07] MEDS: CHOLECALCIFEROL VIT D3 2,000 UNITS TAB/CAP PO SCH (08:56)
[2018-04-07] MEDS: FLUTICASONE NASAL 120 SPRAYS/16 GM MDI EACHNARE SCH (08:58)
[2018-04-07] MEDS ORDERED: PANTOPRAZOLE SODIUM 40 MG TAB PO SCH ×2 (09:00)
[2018-04-07] MEDS ORDERED: LOSARTAN POTASSIUM 25 MG TAB PO SCH (09:00)
--- NOTE | 2018-04-07 12:36 | ASDISCHSUM ---
Discharge Information Plan Status:Home with No Needs Medically Cleared to Leave:04/06/2018 Discharge Date:04/07/2018 12:17 PM CM D/C Disposition:Home, Routine, Self-Care ADT D/C Disposition:Home, Routine, Self-Care Projected Discharge Date:04/07/2018 12:17 PM Transportation at D/C: Discharge Delay Reason: Follow-Up Date:04/07/2018 12:17 PM Discharge Slot: Final Diagnosis: Placement Information Patient Contact Information Contact Name:YURIDIA Relationship: Address:[address] City:[place] Alternate Phone: State/Zip Code:[place] [address] Email: Financial Information Financial Class:Medicare Primary Plan Desc:MEDICARE OUTPATIENT Primary Plan Number:[id number] Secondary Plan Desc:AARP/MDR SUPPLEMENT Secondary Plan Number:[id number] Assessment Information [facility] CM Progress Note CM Note CM Note Notes: Reviewed chart. Pt admitted for cough, exertional shortness of breath/dyspnea, arm pain. History includes HTN, reflux, prostate cancer, s/p prostatectomy. Pt is and lives with his in [place]. Per Dr. Lynn, pt to be started on an anticoagulant either Pradaxa or Xarelto pending insurance coverage. Pt to call insurance company to find out which medication is on their formulary. No PT/OT orders. Anticipate pt will likely discharge home independently with family support when medically stable. CM will continue to follow for any potential needs. Discharge Plan: Likely home independent Date Signed: 04/06/2018 07:12 PM Electronically Signed By:Betty Wall RN Intervention Information Intervention Type:*Occurence 73 Date of Service:04/07/2018 12:19 PM Patient Type:Inpatient Staff Member:Erica Bean Hours: Discipline: Severity: Comment:
--- NOTE | 2018-04-07 12:37 | ASMTLACE ---
LACE Length of stay for Answers: Less than 1 day current admission Comorbidities - select Answers: Any tumor (including all that apply lymphoma or leukemia) Other Notes: Reflux, HTN, prostatect gemma # of Emergency department Answers: 1-2 visits in the last 6 months Score: 4 Date Signed: 04/07/2018 12:36 PM Electronically Signed By:Constance Ann RN
--- NOTE | 2018-04-07 13:55 | PDDCSUM ---
Discharge Summary Discharge Summary: 73 y/o male presenting with exertional dyspnea since early March as well as Right arm pain and right calf pain with exertion only. Symptoms go away with rest. Had viral symptoms (rhinorrhea, cough, cold sx's on Mar 02). no hx of asthma or bronchitis. Non smoker. No hx of HLD. Imaging c/w large vessel vasculitis He was started on Prednisone. Rheum consult was obtained. He was continued on Prednisone. He was started on Heparin and then transitioned to Xarelto. He will f/u with Rheumatology this week. Several tests were obtained and are pending. These will be reviewed on f/u. A biopsy was not performed. A cards consult was obtained. He is to have an op stress test. TTE, EKG, tele, trop no indicative of ACS/CAD. TTE showed increased RVSP and he will f/u with Dr. Rick for evaluation as an op. 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 Involves multiple vessels: 1)75 % occlusion of Right axillary artery 2) Bilateral Subclavian 3)Left Axillary artery 4)Left renal 5)Abdominal Aorta. Per radiology report occlusion is due to inflammation CXR: Hyperinflation TTE: RVSP 49mmHG LE US: no DVT DDX: #Large Vessel Vasculitis, possible Giant cell Arteritis vs Polyarteritis Nodosa vs other #Right Arm Claudication, presumably from occlusion from inflammation from vasculitis #Exertional Dyspnea, etiology possibly multifactorial #Query Reactive Airway disease, did not have benefit from bronchodilator #Small RLL Pulmonary embolus #HTN, chronic #Anemia #Pulm HTN, elevated RVSP, etiology unclear Exam: NAD AAOX3 RRR CTA B S/NT/ND MEDS: SEE MED REC F/U: PER ABOVE total time spent on d/c is 40 mins
[2018-04-08 02:24] LABS: HEPATITIS A ANTIBODY IGM (BCH) NEGATIVE (NEGATIVE); HEPATITIS B CORE AB IGM NEGATIVE (NEGATIVE); HEPATITIS B SURFACE ANTIGEN NEGATIVE (NEGATIVE)
[2018-04-08 02:37] LABS: HEPATITIS C ANTIBODY TOTAL NEGATIVE (NEGATIVE); HIV TYPE 1 AND 2 NEGATIVE (NEGATIVE)
[2018-04-08] MEDS ORDERED: SULFAMETHOX/TMP 800/160 MG 1 TAB PO SCH (09:00)
[2018-04-13] MEDS ORDERED: ALENDRONATE SODIUM 70 MG TAB PO SCH (13:50)
== END 2018-04-07 12:17 | disposition home or self-care (01) | DRG 546 ==
LOC: F2W 13:45 → OBSVTOIN 04-06 14:31
PROVIDERS: ADMIT Family Medicine; ATTEND Family Medicine
DX: M31.6 Other giant cell arteritis (principal); M30.0 Polyarteritis nodosa; I77.1 Stricture of artery; I27.82 Chronic pulmonary embolism; I27.29 Other secondary pulmonary hypertension; K44.9 Diaphragmatic hernia without obstruction or gangrene; K21.9 Gastro-esophageal reflux disease without esophagitis; I10 Essential (primary) hypertension; D64.9 Anemia, unspecified; Z85.46 Personal history of malignant neoplasm of prostate; Z96.641 Presence of right artificial hip joint
CPT/HCPCS: 82595-90; 84156-90; 84166-90; 84484-ER; 85520-90; 85635-90; 85670-90; 86147-90; 86334-90; G0378; G0472; J1644; J7512; J7613; Q9967

== ENCOUNTER → 2018-06-04 | Outpatient (CLI) | payer OTHER, MEDICARE | LOC: BMCIMAGING 14:19 | PROVIDERS: ATTEND Internal Medicine | DX: R06.02 Shortness of breath (principal) ==

== ENCOUNTER → 2018-06-22 | Outpatient (CLI) | payer OTHER, MEDICARE ==
[~2018-06-22] MED LIST: IOPAMIDOL (ISOVUE-370) 150 ML BTL IV ONE
== END ==
LOC: FIMAGING 12:56
PROVIDERS: ATTEND Surgery
DX: I77.1 Stricture of artery (principal); M31.6 Other giant cell arteritis; M79.601 Pain in right arm; M54.2 Cervicalgia; M54.6 Pain in thoracic spine; R06.02 Shortness of breath; S32.030A Wedge compression fracture of third lumbar vertebra, initial encounter for closed fracture; M41.86 Other forms of scoliosis, lumbar region
CPT/HCPCS: 71275; 74174; Q9967; 82565-PO

== ENCOUNTER → 2018-06-27 | Outpatient (CLI) | payer OTHER, MEDICARE | LOC: FIMAGING 10:11 | PROVIDERS: ATTEND Internal Medicine Cardiovascular Disease | DX: I70.0 Atherosclerosis of aorta (principal); I77.9 Disorder of arteries and arterioles, unspecified; I74.3 Embolism and thrombosis of arteries of the lower extremities | CPT/HCPCS: 75635; 93306; Q9967 ==

== ENCOUNTER → 2018-07-17 | Day surgery (SDC) | payer OTHER, MEDICARE ==
[~2018-07-17] MED LIST changes: +ASPIRIN EC 325 MG TAB PO ONE; +DIAZEPAM 5 MG TAB PO ONE; +EPOPROSTENOL SODIUM (ARGININE) 300,000 NG in NS 100 ML IV ONE; +FAMOTIDINE 20 MG TAB PO ONE; +LIDOCAINE 1% 300 MG/30 ML SDV ONE; +MIDAZOLAM 2 MG/2 ML VIAL ONE; +NS 1,000 ML IV ONE; +diphenhydrAMINE 25 MG CAP PO ONE; +fentaNYL 100 MCG/2 ML INJ ONE
[2018-07-17 07:19] LABS: PLATELET COUNT 250 10^3/uL (150-400)
[2018-07-17 07:33] LABS: INR 1.16 (0.83-1.16); PROTIME(PATIENT) 14.3 SEC (12.0-15.0)
--- NOTE | 2018-07-17 07:51 | PDPROPOC ---
Sedation Plan of Care Sedation Plan of Care: vital signs stable, mental status noted, patient educated of risks, benefits, alternatives, patient can tolerate sedation ASA Classification: ASA 3 Mallampati Score: Class 2 Mallampati Reference Image: Patient passed 3-3-2 rule?: Yes
--- NOTE | 2018-07-17 07:51 | PDHPUP ---
History & Physical Update H&P update statement: This history and physical update is based on an assessment of the patient which was completed after admission or registration (within 24 hours), but prior to the surgery/procedure. H&P update: H&P reviewed & patient examined, no change in patient's condition since H&P completed
--- NOTE | 2018-07-17 07:56 | SUROPNOTE ---
[facility] Operative Report - Surgery PROCEDURE PERFORMED: Diagnostic right heart catheterization with ultrasound guided vascular access and acute pulmonary vasoreactivity testing PREOPERATIVE DIAGNOSIS: Pulmonary Arterial Hypertension. POSTOPERATIVE DIAGNOSIS: Pulmonary Arterial Hypertension. ATTENDING PHYSICIAN: Andrew Lemus MD ANESTHESIA: 5 mL of 2% lidocaine injected locally. COMPLICATIONS: None. ESTIMATED BLOOD LOSS: None. PROCEDURE DESCRIPTION: Informed consent was obtained prior to the procedure. A time-out was performed prior to the procedure, confirming the patient's name, procedure type and procedure location. The patient was prepped and draped in the usual sterile fashion, exposing the right neck. The right internal jugular vein was visualized with real-time ultrasound guidance, and the skin above the right internal jugular was anesthetized with 5 mL of 2% lidocaine. The right internal jugular vein was then accessed with 1 stick without arterial puncture under direct real-time ultrasound guidance. Position in the venous system was confirmed with the ultrasound and under fluoroscopy, and a 7-[place] "Precision" micropuncture kit was used to place a 7-[place] lumen introducer sheath via modified Seldinger technique. A 7-[place] Roebuck-Alba catheter was then advanced through the sheath into the right atrium, right ventricle, pulmonary artery and pulmonary artery occlusion pressure positions. Hemodynamic measurements and saturation measurements were obtained in the usual fashion. Following these measurements, the patient was administered IV epoprostenol starting at 2 ng/kg/ min and increased up to 12 ng/kg/min in serial increments and repeat measurements were obtained. Following these measurements, the Roebuck-Alba catheter was removed, followed by removal of the sheath, and hemostasis was achieved. There were no complications from the procedure. 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 Given progressive symptoms combined with serial worsening of RSVP and severe hemodynamic data, PH specific therapy is warranted. Given severe reductions in cardiac output with improvements with IV prostacyclin combination therapy with oral prostacyclin analog as well as PD5 inhibitor seems most reasonable # Pulmonary arterial hypertension # Low cardiac output with improvements during IV prostacyclin administration # No evidence of acute vasoreactivity to epoprostenol to necessitate calcium channel harriet therapy. However patient's cardiac output doubled and PVR decreased by greater than 50% with administration of even process in all. # No evidence of left to right shunt PLAN: # Initiate selexipag 200 mcg bid and uptitrate as instructed # Tadalafil 20 mg BID and if tolerated can do 40 mg daily # Restart oral anticoagulation # Return to clinic for follow-up in 6 weeks # All questions answered.
--- NOTE | 2018-07-17 08:26 | PDCARPN ---
Cardiology Progress Note Assessment/Plan: Assessment: 1. SOB 2. CHICAS 3. Non sustained VT Plan: -LHC today -Risks and benefits discussed. -Pt has been off of Eliquis for over 48 hours. 07/17/18 08:25 Subjective: Heraclio continues to have sob, chicas and evidence of Non Sustained VT on Zio patch.In the setting of ongoing symptoms, will plan for C today. Risks and Benefits discussed in detail. Pt agreeable to pursue. Plan for access via right common femoral artery. Recent CTA of abdominal Aorta with runoff demonstrates no evidence of vasculitis in common femoral vessels. Pt has no Known allergies. No contraindication to sedation. Reviewed/Discussed With: family, multidisciplinary team Objective: Intake/Output (24 Hrs) 07/16/18 07/17/18 07/18/18 05:59 05:59 05:59 Other: Weight 70.307 kg Result Diagrams: 07/17/18 07:10 07/17/18 07:10 - Physical Exam Peripheral Pulses: 2+: femoral (R), femoral (L) Neurologic: AAOx3, CN II-XII grossly intact Psychiatric: cooperative, interactive ICD10 Worksheet Patient Problems: Problems Problem Status Onset Arteritis, unspecified Acute
--- NOTE | 2018-07-17 10:55 | CPIP ---
[f rep st] INVASIVE CARDIAC PROCEDURE DATE OF PROCEDURE: 07/17/2018 PROCEDURE PERFORMED: Left heart catheterization. INDICATION FOR PROCEDURE: Shortness of breath, dyspnea on exertion, exertional intolerance, fatigue coupled with multiple runs of nonsustained ventricular tachycardia on a ZIO patch monitor. DESCRIPTION OF PROCEDURE: After informed consent was obtained for left heart catheterization, the yvonne machado was brought to the cardiac catheterization lab where he was prepped and draped in sterile fashi on. Using 1% lidocaine, the right groin was anesthetized. Using the micropuncture technique and modified Seldinger technique, a 6-Wolof catheter was placed in the right common femoral artery without complications. A JL4 catheter was initially used to cannula te the left main unsuccessfully. A JL4 catheter was exchanged over a guidewire for a JL3.5 catheter. JL3.5 cannulated the left main. Images were obtained of the left coronary anatomy in multiple proj ections. The JL4 catheter was exchanged over a guidewire for a JR4 catheter. JR4 catheter was used to take images of the right coronary artery in multiple projections. The JR4 catheter was exchanged over a guidewire for an angled pigtail catheter. Angled pigtail catheter was used to cross the aorti c valve. LVEDP was assessed. Left ventriculogram was performed. Aortic valve gradient was assessed on pull-back. Angled pigtail catheter was removed over a guidewire without complications. Right co mmon femoral artery angiography demonstrated placement of the sheath above the bifurcation. It was a ppropriate for Angio-Seal deployment. FINDINGS: 1. Left main normal size and caliber, bifurcates into left anterior descending and left circumflex c oronary artery. Left anterior descending is a large caliber vessel. There is no evidence of coronar y disease. There is a moderate size 1st and 2nd diagonal branch with no evidence of coronary disease . 2. Circumflex is a nondominant vessel. There is no evidence of coronary disease within the circumfl ex vessel. 3. The right coronary artery is a large caliber dominant vessel that bifurcates into PDA and PLV bra nch. There is no evidence of coronary disease within the right coronary artery. HEMODYNAMICS: LVEF 60% to 65%. LVEDP 19 mmHg. Aortic valve gradient none. CONCLUSION: 1. Normal coronary arteries. 2. Normal left ventricular function. LVEDP of 19 mmHg. 3. Successful Angio-Seal deployment. [facility] #: [id number]
[2018-07-17 12:06] VITALS: BP 102/59
--- NOTE | 2018-07-17 18:29 | CPEKG ---
Test Reason : OPEN Blood Pressure : / mmHG Vent. Rate : 077 BPM Atrial Rate : 077 BPM P-R Int : 126 ms QRS Dur : 071 ms QT Int : 402 ms P-R-T Axes : 071 049 045 degrees QTc Int : 455 ms Sinus rhythm Abnormal R-wave progression, early transition Confirmed by Maya Benton ([id number]) on 07/17/2018 6:29:17 PM Referred By: Mario Lemus Confirmed By:Maya Benton
== END | disposition home or self-care (01) ==
LOC: FCATH 06:51
PROVIDERS: ATTEND Internal Medicine Pulmonary Disease
DX: I77.6 Arteritis, unspecified (principal); I27.21 Secondary pulmonary arterial hypertension; I47.2 Ventricular tachycardia; R06.02 Shortness of breath; I10 Essential (primary) hypertension; K21.9 Gastro-esophageal reflux disease without esophagitis; Z85.46 Personal history of malignant neoplasm of prostate; Z86.711 Personal history of pulmonary embolism; Z96.649 Presence of unspecified artificial hip joint
CPT/HCPCS: C1760; J1325; J1644; J2250; J3010; Q9967